=== PATIENT | female | born 1955 | race African-American/Black ===

== ENCOUNTER 2017-10-14 05:30 | Day surgery (SDC) | payer MEDICAID ==
[~2017-10-14] VITALS: Ht 167.6 cm; Wt 84.8 kg
[~2017-10-14 05:30] MED LIST: DICL75TA5 PO; MULT-1146 PO; TRAM50TA3 PO
[2017-10-14] MEDS ORDERED: LACTATED RINGERS 1,000 ML IV SCH (06:45)
[2017-10-14] MEDS ORDERED: EPINEPHRINE 1:1000 1 MG/ML AMP ONE (07:14)
[2017-10-14] MEDS ORDERED: MORPHINE SULFATE/PF 1MG/ML 10ML AMP ONE (07:14)
[2017-10-14] MEDS ORDERED: BUPIVACAINE HCL/EPINEPHRINE/PF 0.5%/0.0005 10ML ONE (07:15)
[2017-10-14] MEDS ORDERED: BALANCED SALT IRRIG SOLN 15ML ONE ×2 (07:29→07:34)
[2017-10-14] MEDS ORDERED: GLYCOPYRROLATE 0.2 MG/ML 2ML VIAL ONE (07:37)
[2017-10-14] MEDS ORDERED: FENTANYL CITRATE/PF 50MCG/ML 2ML VIAL ONE (07:37)
[2017-10-14] MEDS ORDERED: PROPOFOL 200MG/20ML VIAL IV ONE (07:37)
[2017-10-14] MEDS ORDERED: MIDAZOLAM HCL 2 MG/2 ML VIAL ONE (07:37)
[2017-10-14] MEDS ORDERED: ROCURONIUM BROMIDE 10MG/ML VIAL 5ML IV ONE (07:37)
[2017-10-14] MEDS ORDERED: SUCCINYLCHOLINE CHLORIDE 200MG/10ML VIAL IV ONE (07:38)
[2017-10-14] MEDS ORDERED: METOCLOPRAMIDE HCL 10MG/2ML VIAL ONE (07:40)
[2017-10-14] MEDS ORDERED: ONDANSETRON HCL 4MG/2ML VIAL ONE (07:40)
[2017-10-14] MEDS ORDERED: LIDOCAINE HCL/PF 1% 10 MG/ML 5ML VIAL ONE (07:45)
[2017-10-14] MEDS ORDERED: EPHEDRINE SULFATE 50MG/ML VIAL ONE (08:17)
[2017-10-14] MEDS ORDERED: HYDROCODONE/ACETAMINOPHEN 10/325MG TABLET PO PRN (09:45)
[2017-10-14] MEDS ORDERED: DICL100G16 TP (09:46)
[2017-10-14] MEDS ORDERED: DICL50TA9 PO (09:46)
[2017-10-14] MEDS ORDERED: FLUT16SP15 NS (09:46)
[2017-10-14] MEDS ORDERED: SODIUM CHLORIDE 0.9% 1,000 ML IV ONE (10:11)
[2017-10-14] MEDS ORDERED: MEPERIDINE HCL/PF 25MG/ML CPJ IV PRN (10:15)
[2017-10-14] MEDS ORDERED: MORPHINE SULFATE 2 MG/ML CPJ (NOT FOR IM USE) IV PRN (10:15)
[2017-10-14] MEDS ORDERED: ONDANSETRON HCL 4MG/2ML VIAL IV PRN (10:15)
[2017-10-14] MEDS: HYDROMORPHONE HCL/PF 2MG/ML CPJ IV PRN ×2 (11:46→12:49)
[2017-10-14 12:49] VITALS: BP 122/72
== END 2017-10-14 14:00 | disposition home or self-care (01) ==
LOC: OR 05:30
PROVIDERS: ATTEND Orthopaedic Surgery
DX: M23.262 Derangement of other lateral meniscus due to old tear or injury, left knee (principal); M94.262 Chondromalacia, left knee; M65.9 Synovitis and tenosynovitis, unspecified; K50.90 Crohn's disease, unspecified, without complications; Z98.890 Other specified postprocedural states; Z88.0 Allergy status to penicillin; Z88.1 Allergy status to other antibiotic agents
CPT/HCPCS: 29881; 88304; 88311; 93005; 97116; 97161; J0171; J0330; J1170; J2250; J2405; J2765; J3010; J3490; J7120; J2274; J2704